=== PATIENT | female | born 1980 ===

== ENCOUNTER 2018-10-30 05:45 | Outpatient (CLI) | payer SELFPAY ==
[2018-10-30] MEDS ORDERED: LACTATED RINGERS 2,000 ML ONE (05:51)
[2018-10-30] MEDS ORDERED: LACTATED RINGERS 1,000 ML IV SCH (07:00)
[2018-10-30] MEDS ORDERED: ZOFRAN ONE (07:25)
--- NOTE | 2018-10-30 07:33 | Anesthesia Consultation ---
Anesthesia Consult and Med Hx Date of service: 10/30/18 - Airway Anesthetic Teeth Evaluation: Good ROM Head & Neck: Adequate Mental/Hyoid Distance: Adequate Mallampati Class: Class I Intubation Access Assessment: Good - Pulmonary Exam CTA: Yes - Cardiac Exam Cardiac Exam: RRR - Pre-Operative Health Status ASA Pre-Surgery Classification: ASA2 Proposed Anesthetic Plan: Spinal - Pulmonary Hx Smoking: No Hx Asthma: No Hx Respiratory Symptoms: No SOB: No - Cardiovascular System Hx Hypertension: No Hx Coronary Artery Disease: No Hx Heart Attack/AMI: No Hx Angina: No Hx Percutaneous Transluminal Coronary Angioplasty (PTCA): No Hx Cardia Arrhythmia: No Hx Pacemaker: No Hx Internal Defibrillator: No Hx Valvular Heart Disease: No Hx Heart Murmur: No Hx Peripheral Vascular Disease: No - Central Nervous System Hx Neuromuscular Disorder: No Hx Seizures: No CVA: No Hx Back Pain: No Hx Psychiatric Problems: No - Gastrointestinal Hx Ulcer: No Hx Gastroesophageal Reflux Disease: No - Endocrine Hx Renal Disease: No Hx End Stage Renal Disease: No Hx Cirrhosis: No Hx Liver Disease: No Hx Insulin Dependent Diabetes: No Hx Non-Insulin Dependent Diabetes: No Hx Thyroid Disease: No Hx Hypothyroidism: No Hx Hyperthyroidism: No - Hematic Hx Anemia: No Hx Sickle Cell Disease: No - Other Systems Hx Alcohol Use: No Hx Substance Use: No Hx Cancer: No Hx Obesity: No
--- NOTE | 2018-10-30 07:42 | Short Stay Summary ---
Short Stay Documentation Date of service: 10/30/18 Narrative H&P: 37y/o @ 13 weeks presents for placement of a cerclage secondary to history of incompetent cervix. The patient denies any vaginal bleeding or leakage of fluid. Cardiac activity confirmed. - History Principal diagnosis: Incompetent cervix Past Medical History: other (incompetent cervix) Past Surgical History: Other (cerclage) Social history: - Allergies and Medications Current Medications: Allergies No Known Allergies Allergy (Unverified 10/19/13 14:13) Home Medications Medication Instructions Recorded Confirmed Last Taken Type Nitrofurantoin [place]/M-Cryst 10/19/13 10/19/13 Unknown History [Macrobid] Active Medications Citric Acid/Sodium Citrate (Bicitra) 30 ml PO ONCE ONE Stop: 10/30/18 06:55 Famotidine (Pepcid) 20 mg IV ONCE ONE Stop: 10/30/18 06:55 Cefazolin Sodium (Ancef/Sterile Water 2 Gm/20 Ml) 2 gm in 20 mls @ 80 mls/hr IV PREOP NR; Protocol Lactated Ringer's (Lactated Ringers) 1,000 mls @ 2,250 mls/hr IV PREOP BRYCE Stop: 10/31/18 07:27 Metoclopramide HCl (Reglan) 10 mg IV ONCE ONE Stop: 10/30/18 06:55 - Physical exam General appearance: no acute distress Integumentary: no rash HEENT: Atraumatic Lungs: Clear to auscultation Breasts: deferred - Brief post op/procedure progress note Date of procedure: 10/30/18 Pre-op diagnosis: Incompetent cervix Post-op diagnosis: same Procedure: [place] cerclage Anesthesia: regional Surgeon: DENNIS YBARRA Estimated blood loss: minimal Pathology: none Condition: stable - Hospital course Hospital course: The patient was admitted the day of surgery and underwent lysis of a [place] cerclage for incompetent cervix. Please see operative note for details of surgery. Postoperative course was uneventful. - Disposition Condition at discharge: Good Disposition: DC-01 TO HOME OR SELFCARE Short Stay Discharge Plan Activity: other (pelvic rest for the duration of the ) Diet: regular Additional Instructions: Scheduled follow-up with Dr. Wadsworth in 1 week Prescriptions: Indomethacin [Indocin] 25 mg PO Q8H #9 capsule oxyCODONE /ACETAMINOPHEN [Percocet 5/325] 1 tab PO Q6HR PRN #20 tablet PRN Reason: Pain
[2018-10-30] MEDS ORDERED: REGLAN IV NR (08:00)
[2018-10-30] MEDS ORDERED: ANCEF/STERILE WATER 2 GM/20 ML 2 GM/20 ML SYRINGE IV NR (08:00)
[2018-10-30] MEDS ORDERED: BICITRA PO NR (08:00)
[2018-10-30] MEDS ORDERED: PEPCID IV NR (08:00)
[2018-10-30 08:32] LABS: Basophils % (Auto) 0.4 % (0.0-1.8); Eosinophils % (Auto) 0.9 % (0.0-4.3); Hematocrit 38.4 % (30.3-42.9); Hemoglobin 12.8 gm/dl (10.1-14.3); Lymphocytes # (Auto) 3.5 K/mm3 (1.2-5.4); Lymphocytes % (Auto) 28.8 % (13.4-35.0); Mean Corpuscular HGB Conc 33 % (30-34); Mean Corpuscular Volume 84 fl (79-97); Monocytes % (Auto) 7.5 % (0.0-7.3); Platelet Count 318 K/mm3 (140-440); Red Blood Count 4.56 M/mm3 (3.65-5.03); Red Cell Distribution Width 13.7 % (13.2-15.2)
[2018-10-30 08:33] LABS: Eosinophils # (Auto) 0.1 K/mm3 (0.0-0.4); Monocytes # (Auto) 0.9 K/mm3 (0.0-0.8)
[2018-10-30] MEDS ORDERED: DIPRIVAN 10 MG/ML IV ONE (09:47)
[2018-10-30] MEDS ORDERED: LACTATED RINGERS 1,000 ML ONE (10:07)
--- NOTE | 2018-10-30 10:17 | Operative Report ---
Operative Report Operative Report: Date of procedure: 10/30/2018 Pre-operative diagnosis: Incompetent cervix Post-operative diagnosis: Same as above Procedure name(s): [place] cerclage Surgeon: Saba Smith M.D. Thread Cutter Tender: None Estimated blood loss: Minimal Anesthesia: Regional Findings Intrauterine at 13 weeks estimated gestational age. Closed cervical os Indication: 37-year-old at 13 weeks estimated gestational age with a history of incompetent cervix. The patient presents for placement of a [place] cerclage. Procedure The patient was taken to the operating room and given regional anesthesia without complication. She was prepped and draped in a normal sterile fashion and placed in high lithotomy position. A bivalve speculum was placed in the patient's vagina. A ring forcep was placed at the 12 o'clock position on the anterior cervix. A #1 Prolene was placed through the ectocervix in a c ircumferential fashion. The suture was pursestring through the ectocervix with the knot being tied at 12:00. There was no evidence of leakage of fluid or active vaginal bleeding at the conclusion of the case. The vaginal instruments were then removed atraumatically. The patient was taken out of lithotomy position and taken to the recovery room in stable condition. All sponge laps and needle counts were correct 2.
[2018-10-30 11:13] VITALS: BP 120/72
== END 2018-10-30 16:00 | disposition home or self-care (01) ==
LOC: TRG 05:45 → APU 05:45 → EDSTATUS 07:30 → TRG 11:00
PROVIDERS: ATTEND Obstetrics & Gynecology
DX: O34.31 Maternal care for cervical incompetence, first trimester (principal); O09.521 Supervision of elderly multigravida, first trimester; Z3A.13 13 weeks gestation of pregnancy
CPT/HCPCS: 36415; 85025; 86850; 86900; 86901; J2405; J2704; J2765; J7120; J0690

== ENCOUNTER 2019-04-29 06:01 | Inpatient (IN) | payer OTHER ==
[2019-04-29] MEDS ORDERED: NARCAN 0.4 MG/1 ML IV PRN (06:25)
[2019-04-29] MEDS ORDERED: XYLOCAINE 2% INFILTRATI ONE (06:25)
[2019-04-29] MEDS ORDERED: BRETHINE SUB-Q PRN (06:25)
[2019-04-29] MEDS ORDERED: AMPICILLIN/NS 2 GM/100 ML 2 GM/100 ML BAG IV ONE ×2 (06:25→06:30)
[2019-04-29] MEDS ORDERED: ZOFRAN IV PRN ×2 (06:25→09:30)
[2019-04-29] MEDS ORDERED: SUBLIMAZE IV PRN (06:25)
[2019-04-29] MEDS ORDERED: BRETHINE IVP PRN (06:25)
[2019-04-29] MEDS ORDERED: MINERAL OIL PO PRN (06:25)
[2019-04-29] MEDS ORDERED: STADOL IV PRN (06:25)
[2019-04-29 07:00] LABS: Hematocrit 35.4 % (30.3-42.9); Mean Corpuscular HGB Conc 34 % (30-34); Mean Corpuscular Volume 85 fl (79-97); Platelet Count 309 K/mm3 (140-440); Red Blood Count 4.18 M/mm3 (3.65-5.03); Red Cell Distribution Width 13.3 % (13.2-15.2)
[2019-04-29] MEDS ORDERED: PITOCin/NS 30 UNIT/500ML 30 UNITS/500 ML BAG IV SCH (07:00)
[2019-04-29] MEDS ORDERED: PITOCin/NS 20 UNIT/1000ML DRIP 20 UNITS/1,000 ML BAG IV SCH (07:00)
[2019-04-29] MEDS ORDERED: LACTATED RINGERS 1,000 ML IV SCH (07:00)
[2019-04-29] MEDS ORDERED: XYLOCAINE 2%/EPI 1:100,000 INFILTRATI NR (07:29)
[2019-04-29] MEDS ORDERED: FLEET MINERAL OIL PR NR (07:29)
[2019-04-29] MEDS ORDERED: CYTOTEC PR NR (07:30)
--- NOTE | 2019-04-29 08:50 | History and Physical Report ---
History of Present Illness Date of examination: 04/29/19 Date of admission: 04/29/19 06:21 contractions Chief complaint: contractions History of present illness: Patient here for contractions Past History Past Medical History: no pertinent history Past Surgical History: no surgical history Family/Genetic History: none Social history: no significant social history, . denies: smoking, alcohol abuse, prescription drug abuse - Obstetrical History Expected Date of Delivery: 05/04/19 Actual Gestation: 39 Week(s) 2 Day(s) : 4 Para: 1 Hx # Term Pregnancies: 1 Number of Pregnancies: 0 Spontaneous Abortions: 2 Induced : 0 Number of Living Children: 1 Medications and Allergies Allergies Allergy/AdvReac Type Severity Reaction Status Date / Time No Known Allergies Allergy Verified 10/30/18 07:59 Home Medications Medication Instructions Recorded Confirmed Last Taken Type Nitrofurantoin [place]/M-Cryst 10/19/13 10/19/13 Unknown History [Macrobid] Indomethacin [Indocin] 25 mg PO Q8H #9 capsule 10/30/18 Unknown Rx oxyCODONE /ACETAMINOPHEN [Percocet 1 tab PO Q6HR PRN #20 tablet 10/30/18 Unknown Rx 5/325] Active Meds: Active Medications Butorphanol Tartrate (Stadol) 2 mg IV Q2H PRN PRN Reason: Pain , Severe (7-10) Ephedrine Sulfate (Ephedrine Sulfate) 10 mg IV Q2M PRN PRN Reason: Hypotension Fentanyl (Sublimaze) 100 mcg IV Q2H PRN PRN Reason: Labor Pain Oxytocin/Sodium Chloride (Pitocin/Ns 20 Unit/1000ml Drip) 20 units in 1,000 mls @ 125 mls/hr IV DIRECT BRYCE Oxytocin/Sodium Chloride (Pitocin/Ns 30 Unit/500ml) 30 units in 500 mls @ 2 mls/hr IV TITR BRYCE; Protocol Lactated Ringer's (Lactated Ringers) 1,000 mls @ 125 mls/hr IV DIRECT BRYCE Ampicillin Sodium (Ampicillin/Ns 1 Gm/50 Ml) 1 gm in 50 mls @ 100 mls/hr IV Q4HR BRYCE; Protocol Mineral Oil (Mineral Oil) 30 ml PO QHS PRN PRN Reason: Constipation Naloxone HCl (Narcan 0.4 Mg/1 Ml) 0.1 mg IV Q2MIN PRN PRN Reason: Res Rate </= 8 or 02 SAT < 92% Ondansetron HCl (Zofran) 4 mg IV Q8H PRN PRN Reason: Nausea And Vomiting Terbutaline Sulfate (Brethine) 0.25 mg SUB-Q ONCE PRN PRN Reason: Hyperstimulation/Hypertonicity Terbutaline Sulfate (Brethine) 0.25 mg IVP ONCE PRN PRN Reason: Hyperstimulation/Hypertonicity Review of Systems All systems: negative Genitourinary: contractions - Vital Signs Vital signs: Vital Signs Pulse Pulse Ox 82 98 04/29/19 06:36 04/29/19 06:36 Temp Pulse Resp BP Pulse Ox 79 127/76 99 04/29/19 08:41 04/29/19 07:25 04/29/19 08:41 - Physical Exam Breasts: Positive: normal Cardiovascular: Regular rate, Normal S1 Lungs: Positive: Clear to auscultation, Normal air movement Abdomen: Positive: normal appearance, soft, normal bowel sounds. Negative: distention, tenderness, guarding Genitourinary (Female): Positive: normal external genitalia, normal perenium Vagina: Positive: normal moisture Uterus: Positive: normal size Anus/Rectum: Positive: normal perianal skin Extremities: Positive: normal Deep Tendon Reflex Grade: Normal +2 - Obstetrical FHR: category 1 Cervical Dilatation: 8 Results Result Diagrams: 04/29/19 06:24 Abnormal lab results 04/29/19 Range/Units 06:24 WBC 11.1 H (4.5-11.0) K/mm3 All other labs normal. Assessment and Plan A/P HD#1 limited care with two visit on chart. HX of incompotent cervix GBS unknown- amp started IVF. all labs advanced dilation expect vaginal delivery
--- NOTE | 2019-04-29 08:54 | Procedure Note ---
OB Delivery Note - Delivery Date of Delivery: 04/29/19 Surgeon: JOHN ROWLEY Estimated blood loss: 300cc - Vaginal Delivery presentation: vertex Delivery position: OA Intrapartum events: meconium Delivery induction: none Delivery monitor: external FHT, external uterine Route of delivery: Delivery placenta: spontaneous Delivery cord: 3 umbilical vessels Episiotomy: none Delivery laceration: none Anesthesia: none Delivery comments: Pt progressed to complete/complete/+2 and pushed to deliver a viable female over intact perineum under IV anesthesia via spontaneous vaginal delivery. Head delivered in DOMINIQUE position. Shoulders delivered without complications. Meconium thick noted. . placed on maternal abdomen. Cord clamped and cut and handed to NICU in attendance. Cord blood collected. Placenta delivered spontaneously (3VC, intact). EBL 300mL.Patient tolerated procedure well. - A at 1 minute: 8 at 5 minutes: 9 Gender: Female (8 pounds 9 oz)
[2019-04-29] MEDS ORDERED: SODIUM CHLORIDE FLUSH SYRINGE 10 ML IV PRN (09:00)
[2019-04-29] MEDS ORDERED: PERCOCET 5/325 PO PRN (09:30)
[2019-04-29] MEDS ORDERED: TYLENOL PO PRN (09:30)
[2019-04-29] MEDS ORDERED: PHENERGAN PO PRN (09:30)
[2019-04-29] MEDS ORDERED: LANSINOH TP PRN (09:30)
[2019-04-29] MEDS ORDERED: BENADRYL PO PRN (09:30)
[2019-04-29] MEDS ORDERED: PHENERGAN PR PRN (09:30)
[2019-04-29] MEDS ORDERED: TUCKS PAD TP PRN (09:30)
[2019-04-29] MEDS ORDERED: DULCOLAX PR PRN (10:00)
[2019-04-29] MEDS ORDERED: AMPICILLIN/NS 1 GM/50 ML 1 GM/50 ML BAG IV SCH (10:27)
[2019-04-29] MEDS: IBUPROFEN PO SCH ×3 (10:45→21:57)
[2019-04-29] MEDS ORDERED: MILK OF MAGNESIA PO PRN (22:00)
[2019-04-30 01:31] LABS: Hematocrit 31.9 % (30.3-42.9); Hemoglobin 10.6 gm/dl (10.1-14.3)
--- NOTE | 2019-04-30 08:30 | Progress Note ---
Assessment and Plan PPD1 s/p Mild anemia- ferrous sulfate supplementation Vital signs stable Continue current care, anticipate d/c to home tomorrow Subjective - Subjective Date of service: 04/30/19 Principal diagnosis: Interval history: PPD1 s/p Patient reports: appetite normal, voiding normally, pain well controlled, ambulating normally [place]: doing well, nursing well, bottle feeding (both breast and bottle) Objective - Vital Signs Latest vital signs: Vital Signs Temp Pulse Resp BP Pulse Ox 04/29/19 23:57 98.5 F 77 18 105/57 97 04/29/19 21:57 19 04/29/19 15:28 99.4 F 65 16 116/63 95 04/29/19 10:26 98.8 F 77 16 109/69 96 04/29/19 09:54 75 122/67 04/29/19 09:32 97.7 F 04/29/19 08:41 79 99 04/29/19 08:36 78 99 04/29/19 08:31 81 98 Intake and Output 04/29/19 04/30/19 04/30/19 23:59 07:59 15:59 Intake Total 120 240 Balance 120 240 Intake: Oral 120 240 Other: Total, Intake Amount 120 240 # Voids Void 1 - Exam Breasts: Present: normal Lungs: Present: Normal air movement Abdomen: Present: normal appearance, soft Uterus: Present: normal, firm, fundal height below umbilicus Extremities: Present: normal
[2019-04-30] MEDS: IBUPROFEN PO SCH ×2 (10:41→22:12)
--- NOTE | 2019-05-01 08:13 | Progress Note ---
Assessment and Plan PPD2 s/p Mild anemia- ferrous sulfate supplementation Vital signs stable Discharge to home today Subjective - Subjective Date of service: 05/01/19 Principal diagnosis: Interval history: PPD2 s/p Patient reports: appetite normal, voiding normally, pain well controlled, ambulating normally [place]: doing well, nursing well, bottle feeding (both) Objective - Vital Signs Latest vital signs: Vital Signs Temp Pulse Resp BP BP Pulse Ox 05/01/19 00:00 98.4 F 81 19 119/72 04/30/19 22:12 18 04/30/19 16:27 98.5 F 78 18 111/65 96 Intake and Output 04/30/19 05/01/19 05/01/19 23:59 07:59 15:59 Intake Total 360 300 Balance 360 300 Intake: Oral 360 Intake, Free Water 300 Other: Total, Intake Amount 360 # Voids Void 1 - Exam Breasts: Present: normal Lungs: Present: Normal air movement Abdomen: Present: normal appearance, soft Extremities: Present: normal
--- NOTE | 2019-05-01 08:17 | Discharge Summary ---
Providers - Providers Date of Admission: 04/29/19 06:21 Date of discharge: 05/01/19 Attending physician: STEFFANIE CASTILLO Primary care physician: STEFFANIE CASTILLO Hospitalization Reason for admission: active labor Delivery: Episiotomy: none Laceration: none Other procedures: none complications: none Discharge diagnosis: IUP at term delivered Hospital course: Pt was admitted for active labor at term and progressed to of viable . Pt met discharge criteria on PPD1. Condition at discharge: Good Disposition: DC-01 TO HOME OR SELFCARE Plan - Discharge Medications Prescriptions: Ferrous Sulfate [Feosol 325 MG tab] 325 mg PO BID #30 tablet Ibuprofen [Motrin] 600 mg PO Q8H PRN #30 tablet PRN Reason: Pain oxyCODONE /ACETAMINOPHEN [Percocet 5/325] 1 tab PO Q6HR PRN #20 tablet PRN Reason: Pain - Provider Discharge Summary Activity: routine, no sex for 6 weeks, no heavy lifting 4 weeks, no strenuous exercise Diet: routine Instructions: routine Additional instructions: [] Smoking cessation referral if applicable(refer to patient education folder for contact #) [] Refer to [facility]'s [facility] Booklet Call your doctor immediately for: * Fever > 100.5 * Heavy vaginal bleeding ( >1 pad per hour) * Severe persistent headache * Shortness of breath * Reddened, hot, painful area to leg or breast * Drainage or odor from incision. * Keep incision clean and dry at all times and follow doctor's instructions regarding bathing/showering - Follow up plan Follow up: STEFFANIE CASTILLO MD [Primary Care Provider] - 05/28/19 (Please call [facility] to schedule appointment)
[2019-05-01 11:12] VITALS: BP 125/74
== END 2019-05-01 10:45 | disposition home or self-care (01) | DRG 807 ==
LOC: TRG 06:01 → LD 06:21 → TRG 06:21 → OB 10:44
PROVIDERS: ADMIT Obstetrics & Gynecology; ATTEND Obstetrics & Gynecology
PROC: 10E0XZZ Delivery of Products of Conception, External Approach (ICD-10-PCS; principal; 2019-04-29)
DX: O77.0 Labor and delivery complicated by meconium in amniotic fluid (principal); Z37.0 Single live birth; O99.02 Anemia complicating childbirth; D64.9 Anemia, unspecified; Z3A.39 39 weeks gestation of pregnancy; Z79.899 Other long term (current) drug therapy
CPT/HCPCS: 36415; 85014; 85018; 85027; 86592; 86850; 86900; 86901; 88307; G0378; J0290; J2590; J7120